=== PATIENT | female | born 1945 | race Two or more races ===

== ENCOUNTER 2024-08-13 14:23 | Emergency (ER) | payer OTHER ==
[~2024-08-13] VITALS: Ht 149.9 cm; Wt 105.4 kg
[2024-08-13] MEDS: HYDROcodone-ACET 10/325MG TAB PO ONE (15:02)
[2024-08-13 15:05] VITALS: BP 132/74; PULSE 86; RESP 18; TEMP 98.3; O2SAT 96
[2024-08-13] MEDS ORDERED: IBUP-1454 PO (16:34)
[2024-08-13] MEDS ORDERED: HYDR-4902 PO (17:15)
== END 2024-08-13 17:24 | disposition home or self-care (01) ==
LOC: ER 14:23
DX: S52.591A Other fractures of lower end of right radius, initial encounter for closed fracture (principal); W18.39XA Other fall on same level, initial encounter; Y93.E1 Activity, personal bathing and showering; Y92.89 Other specified places as the place of occurrence of the external cause; Y99.8 Other external cause status
CPT/HCPCS: 73090; 73130